=== PATIENT | female | born 1960 | race Caucasian/White ===

== ENCOUNTER 2025-09-05 14:18 | Emergency (ER) | payer BC ==
[~2025-09-05] VITALS: Ht 154.9 cm; Wt 65.0 kg
[2025-09-05 14:20] VITALS: BP 141/81; PULSE 99; RESP 18; O2SAT 99
--- NOTE | 2025-09-05 14:25 | Physician Documentation ---
History of Present Illness ~ Chief Complaint: Bite-insect Stated Complaint: SPIDER BITE Time Seen by MD: 16:51 HPI Patient is a very pleasant 65-year-old female that presents to the emergency department for evaluation of an abscess that she believes originating as an insect bite on the posterior surface of her right elbow. Patient denies fever chills nausea vomiting diarrhea at this time patient reports that she was seen at urgent care today put on antibiotics but her elbow continues to burn. Area of induration appears to have subsided based on the outline drawn yesterday at the urgent care visit visit. Medication Reconciliation Allergies: Coded Allergies: No Known Allergies (Unverified , 09/05/25) Past Medical History Past Medical History: No Pertinent History Past Surgical History: abdominal surgery, , tonsillectomy Alcohol Use: None Lives with: Family Lives In: Home Occupation: employed Review of Systems ROS As stated above in the HPI, otherwise all systems are reviewed and negative. Physical Exam Vital Signs: Temperature: 97.0, Source: Oral, Heart Rate: 99, Respiratory Rate: 18, BP: 141/81, Pulse Oximetry: 99, Weight: 65.000 Oxygen Flow Rate: 0 Physical Exam VITALS: Reviewed and as above. GENERAL: Alert, no apparent distress. HEENT: Normocephalic, atraumatic, PERRL, EOMI, dry mucosa, no erythema RESPIRATORY: Lungs clear, normal breath sounds, no respiratory distress. CHEST: No accessory muscle use, no retractions CV: Regular rate, rhythm, no edema, no murmur, No: JVD GI: Soft, non-tender, bowels sounds present, no rebound, guarding, or rigidity BACK: No CVA tenderness, or swelling MUSCULOSKELETAL No deformities, no edema SKIN: Warm and dry, small area of induration and erythema consistent with small abscess noted to the posterior aspect of the right elbow. Previously marked area outlining erythema and induration show improvement at this time. NEURO: Oriented x4, No motor or sensory deficit PSYCH: Normal mood and affect, no agitation Progress Results/Orders Results/Orders Completed Orders - YOLANDA RIZO [facility] Lidocaine 1% 30ml Vial (Xylocaine 1% Via (09/05/25 18:08) Cephalexin Capsule (Keflex Capsule) (09/05/25 18:50) Acetaminophen 325mg Tablet (Tylenol Tabl (09/05/25 18:50) Ibuprofen Tablet (Motrin Tablet) (09/05/25 18:50) Ibuprofen Tablet (Motrin Tablet) (09/05/25 18:50) Vital Signs 09/05/25 14:20 Temp 97.0 Pulse 99 Resp 18 B/P (MAP) 141/81 Pulse Ox 99 O2 Flow Rate 0 Medical Decision Making Additional information obtaine: other Findings 65-year-old female presented with a posterior right elbow abscess, likely secondary to insect bite. She denied systemic symptoms (fever, chills, GI complaints). Exam revealed decreased induration compared to prior outline, with a small amount of purulent drainage expressed. No evidence of systemic inflammatory response syndrome (SIRS) or immunocompromise. Assessment: Uncomplicated cutaneous abscess, mild, without systemic involvement. No evidence of necrotizing infection or severe disease. Initial management included incision and drainage, which is the mainstay of therapy for abscesses. Adjunctive antibiotics are reasonable given ongoing symptoms and recent urgent care evaluation, though evidence suggests antibiotics may not improve cure rates after adequate drainage in uncomplicated cases.However, cephalexin is appropriate for mild purulent skin infections without MRSA risk factors. Antibiotic Management: Switched from Augmentin to cephalexin (Keflex), to complete a 10-day course. Cephalexin is effective against common skin pathogens, including methicillin-sensitive Staphylococcus aureus and streptococci. Patient was counseled to complete the full course to reduce resistance risk and recurrence. Disposition: Patient prefers outpatient management. No indications for admission. Instructed to follow up with PCP or return to ED for worsening symptoms (increased pain, swelling, erythema, fever, drainage, or systemic signs). Advised regarding possible antibiotic side effects, including diarrhea and rare risk of C. difficile. Plan: Continue cephalexin 500 mg PO q12h for 10 days. Monitor for clinical improvement. Return precautions reviewed. No further intervention required at this time. Differential Dx:Considerations: Include: Abrasion, Allergic reaction, Anaphylaxis, Cellulitis, Contusion, Fracture, Hematoma, Insect envenomation, Laceration, Neurovascular injury, Punture wound, Retained foreign body, Urticaria, Other Departure Disposition: 01 HOME / SELF CARE / HOMELESS Impression: Primary Impression: Insect bites Additional Impression: Abscess Condition: Stable Discharge Instructions: Insect Bite, Adult, [id number], Skin Abscess, [id number] Additional Instructions: You are being discharged after treatment for an abscess (a pocket of infection) on the back of your right elbow. This likely started as an insect bite. The area was drained, and you are now being treated with an antibiotic called cephalexin (Keflex) for 10 days. How to take your medicine: Take cephalexin exactly as prescribed, until you finish all 10 days, even if you start to feel better. If you miss a dose, take it as soon as you remember. If it is almost time for your next dose, skip the missed dosedo not double up. Common side effects include mild stomach upset or diarrhea. If you develop severe diarrhea, a rash, or trouble breathing, seek medical attention right away.[5] Wound care: Keep the area clean and dry. Change any bandages as instructed. Wash your hands before and after touching the area. What to expect: Mild redness, swelling, or tenderness is normal and should improve over the next few days. The area may continue to drain a small amount of fluid. When to seek help: Return to the emergency department or contact your doctor if you notice any of the following: Fever or chills Redness, swelling, or pain that gets worse Pus or drainage that increases or has a bad smell The area becomes hard, hot, or very tender You feel very unwell or weak You have an allergic reaction (rash, swelling, trouble breathing) Follow-up: Make an appointment with your primary care provider within the next week, or sooner if you have concerns. If your symptoms do not improve after a few days, or if they get worse, return to the emergency department. Other tips: Finish all your antibiotics, even if you feel better. Do not squeeze or pick at the area. Wash your hands often to prevent spreading infection to others. If you have any questions or concerns, do not hesitate to call your doctor or return to the emergency department. Referrals: NO PRIMARY CARE PROVIDER (PCP) Prescriptions Cephalexin*Monohydrate* (Keflex*) 500 Mg Capsule 1 CAP PO QID for 10 Days, #40 CAP Prov: YOLANDA RIZO 09/05/25 Education Educated: Patient Educated regarding: diagnosis, treatment, need for follow up Signature Scribe Signature: A Attestation: Scribed for Yolanda Rizo by NATALY Acosta . 09/05/25 19:04 YOLANDA RIOZP Sep 05, 2025 14:25
[2025-09-05] MEDS: LIDOcaine 1% 30ml preserv. free vial IJ STA (18:08)
[2025-09-05] MEDS ORDERED: CEPH-585 PO (19:03)
[2025-09-05 19:10] VITALS: TEMP 97
[2025-09-05] MEDS: ibuprofen tablet 400 MG TABLET PO ONE (19:12)
[2025-09-07] MEDS ORDERED: SULF1TAB45 PO (08:13)
== END 2025-09-05 19:14 | disposition home or self-care (01) ==
LOC: ER 14:18
DX: L02.511 Cutaneous abscess of right hand (principal); S60.561A Insect bite (nonvenomous) of right hand, initial encounter; Z98.890 Other specified postprocedural states; W57.XXXA Bitten or stung by nonvenomous insect and other nonvenomous arthropods, initial encounter; Y93.89 Activity, other specified; Y92.89 Other specified places as the place of occurrence of the external cause; Y99.8 Other external cause status
CPT/HCPCS: 10060; 99284; A6223; A6449

== ENCOUNTER 2025-09-13 14:33 | Emergency (ER) | payer BC ==
[~2025-09-13] VITALS: Ht 154.9 cm; Wt 63.5 kg
[~2025-09-13 14:33] MED LIST: CEPH-585 PO; MUPI22OI30 TOP; SULF1TAB45 PO
[2025-09-13 14:36] VITALS: TEMP 98
--- NOTE | 2025-09-13 16:25 | Physician Documentation ---
History of Present Illness ~ Chief Complaint: Wound Stated Complaint: INFECTION Time Seen by MD: 15:11 Primary Medical Doctor: none HPI Right-hand dominant 65-year-old female. Patient presents to the emergency department for evaluation of the right forearm abscess with cellulitis. Currently on dual antibiotic coverage for suspected MRSA. No lymphangitis noted. 4 cm x 3 cm erythemic area with central fluctuance and unroofing. Grossly neurologically intact radial median ulnar nerve. Tetanus within 5 years?: No Medication Reconciliation Allergies: Coded Allergies: No Known Allergies (Unverified , 09/05/25) Scheduled Cephalexin*Monohydrate* (Keflex*), 1 CAP PO QID Mupirocin* (Bactroban*), 1 APPLIC TOP Q8H Sulfamethoxazole/Trimethoprim (Septra Ds Tab), 1 TAB PO BID Past Medical History Past Medical History: No Pertinent History Past Surgical History: abdominal surgery, , tonsillectomy Alcohol Use: None Lives with: Family Lives In: Home Occupation: employed Physical Exam Vital Signs: Temperature: 98.0, Source: Oral, Heart Rate: 105, Respiratory Rate: 18, BP: 139/75, Pulse Oximetry: 97, Weight: 63.500 Oxygen Flow Rate: 0 Procedures I & D Procedure : Site: Right proximal forearm Anesthesia: Lidocaine Volume Anesthetic (mls): 1 Blade Size: 11 Prep/Supplies: packing placed (1 in quarter-inch gauze) Incision: pus drained, blood drained Tolerated Procedure Well?: yes, no complications Progress Results/Orders Results/Orders Orders - TALHA SULLIVAN PAC Forearm,Incl.One Joint (09/13/25 ) Completed Orders - TALHA SULLIVAN PAC Forearm,Incl.One Joint (09/13/25 ) Vital Signs 09/13/25 09/13/25 14:36 16:39 Temp 98.0 Pulse 105 90 Resp 18 16 B/P (MAP) 139/75 125/76 Pulse Ox 97 96 O2 Flow Rate 0 Microbiology Date/Time Source Procedure Growth Status 09/13/25 16:08 Arm Right Abscess Routine Culture - Preliminary Resulted Medical Decision Making Additional information obtaine: N/A Findings Examination history warrants incision and drainage. Please see procedure note. Patient to continue with dual antibiotic therapy. Wound culture obtained and sent to the lab. We will follow up culture. Recommendation for 8-72 hour recheck. Discharged without clinical suspicion for compartment syndrome. Low to no suspicion for compartment syndrome. No lymphangitis noted. X-ray imaging obtained and reassuring for no obvious gas, foreign body or bony pathology. We will consider ID consult after culture report if not better. Differential Dx:Considerations: Include: Abscess, Cellulitis, Dressing change, Healing wound Departure Disposition: HOME / SELF CARE / HOMELESS Impression: Primary Impression: Laceration Additional Impression: Wound abscess Condition: Improved Discharge Instructions: Skin Abscess Additional Instructions: Today in the emergency department you had an incision and drainage of the right forearm. Please continue with your dual antibiotic therapy. The wound culture has been sent to the lab. In the emergency department we will connect with you regarding follow up if needed. Please return to the emergency department forwarded to 72 hours for wound reassessment. Thank you for visiting emergency department of [facility]. Referrals: NO PRIMARY CARE PROVIDER (PCP) Education Educated: Patient Educated regarding: diagnosis, treatment, prognosis, need for follow up Signature Scribe Signature: . Attestation: . TALHA SULLIVAN PAC Sep 13, 2025 16:25
[2025-09-13 16:39] VITALS: BP 125/76; PULSE 90; RESP 16; O2SAT 96
--- NOTE | 2025-09-13 18:09 | RADIOLOGY REPORT ---
DI FOREARM,INCL.ONE JOINT Comparison: None Indication: Infection left proximal forearm Findings: No acute fracture or dislocation. No soft tissue gas. IMPRESSION: No acute fracture or dislocation.
== END 2025-09-13 16:41 | disposition home or self-care (01) ==
LOC: ER 14:34
DX: L02.413 Cutaneous abscess of right upper limb (principal); Z90.89 Acquired absence of other organs
CPT/HCPCS: 10060; 73090; 87070; 99284; A6407; A6258; A6449

== ENCOUNTER 2025-09-16 15:03 | Emergency (ER) | payer BC ==
[~2025-09-16] VITALS: Ht 154.9 cm; Wt 62.6 kg
[2025-09-16 15:09] VITALS: TEMP 97.9
[2025-09-16] MEDS ORDERED: DOXY100C43 PO (15:12)
--- NOTE | 2025-09-16 15:12 | Physician Documentation ---
History of Present Illness ~ Stated Complaint: RECHECK WOUND Time Seen by MD: 15:09 Primary Medical Doctor: none HPI Patient is status post incision and drainage to the proximal right forearm. We will be finishing her course of Keflex and Bactrim DS today. Continues to have slight purulent discharge from the incision site. She is grossly neurologically intact. Cultures are were obtained and are pending for review today. Tetanus within 5 years?: No Medication Reconciliation Allergies: Coded Allergies: No Known Allergies (Unverified , 09/16/25) Scheduled Doxycycline Monohydrate (Doxycycline Monohydrate), 100 MG PO BID Mupirocin* (Bactroban*), 1 APPLIC TOP Q8H Sulfamethoxazole/Trimethoprim (Septra Ds Tab), 1 TAB PO BID Discontinued Medications Cephalexin*Monohydrate* (Keflex*), 1 CAP PO QID Discontinued Reason: Auto Discontinued Past Medical History Past Medical History: No Pertinent History Past Surgical History: abdominal surgery, , tonsillectomy Alcohol Use: None Lives with: Family Lives In: Home Occupation: employed Review of Systems All Other Systems at this time: Reviewed and Negative Integumentary: Reports: lesions Physical Exam Vital Signs: RN Vital Signs have been reviewed: Yes General Appearance: alert, WD/WN EENT: normal ENT inspection Neck: full range of motion Cardiovascular: regular rate, rhythm Respiratory: no respiratory distress Chest: no accessory muscle use Gastrointestinal: non-tender Extremities: other (Incision with packing placed to the proximal lateral right forearm with slight erythema and secondary hyperemia from Band-Aid) Skin: warm/dry Neurologic: oriented x4 Lymphatics: normal inspection Psychiatric: normal mood/affect Progress Results/Orders Results/Orders Vital Signs 09/16/25 15:09 Temp 97.9 Pulse 114 Resp 20 B/P (MAP) 112/76 Pulse Ox 95 O2 Flow Rate 0 Medical Decision Making Additional information obtaine: old records Findings 65-year-old female who is status post incision and drainage of abscess with cellulitis. Packing removed without difficulty. Wound we will continue to heal by secondary intention additional packing not indicated. We will place patient on doxycycline and further follow cultures. Differential Dx:Considerations: Include: Abscess, Dressing change, Healing wound Departure Disposition: 01 HOME / SELF CARE / HOMELESS Impression: Primary Impression: Wound abscess Additional Impression: History of incision and drainage Condition: Improved Discharge Instructions: How to Change Your Wound Dressing Additional Instructions: Today in the emergency department you had packing removed. Please do frequent soaks and/or apply warm moist heat. A new prescription has been forwarded to your pharmacy. Wound culture has been sent to the lab for review in 48-72 hours. Please allow wound to heal by secondary intention is to follow up with the primary care physician and/or return to the emergency department if worse. Thank you for visiting [facility]. Referrals: NO PRIMARY CARE PROVIDER (PCP) Prescriptions Doxycycline Monohydrate (Doxycycline Monohydrate) 100 Mg Capsule 100 MG PO BID, #14 CAP may sub doxycycline hyclate or azithromycin z-pack as prescribed Prov: TALHA SULLIVAN PAC 09/16/25 Education Educated: Patient Educated regarding: diagnosis, treatment, prognosis Signature Scribe Signature: . Attestation: . TALHA SULLIVAN PAC Sep 16, 2025 15:12
[2025-09-16 15:31] VITALS: BP 118/74; PULSE 91; RESP 16; O2SAT 98
== END 2025-09-16 15:34 | disposition home or self-care (01) ==
LOC: ER 15:04
DX: L02.511 Cutaneous abscess of right hand (principal); T81.49XA Infection following a procedure, other surgical site, initial encounter; Z98.890 Other specified postprocedural states; Z90.89 Acquired absence of other organs; Z79.899 Other long term (current) drug therapy
CPT/HCPCS: 99283